=== PATIENT | female | born 1970 | race Caucasian/White ===

== ENCOUNTER 2023-02-04 11:00 | Day surgery (SDC) | payer OTHER ==
[~2023-02-04 11:00] MED LIST: Sodium Chloride 0.9% 10 ML Syringe FLUSH PRN
[2023-02-04] MEDS: Sodium Chloride 0.9% 1,000 ML IV SCH (11:15)
[2023-02-04] MEDS ORDERED: Midazolam 1 MG/ML 2 ML SDV ONE (11:35)
[2023-02-04] MEDS ORDERED: Propofol 200 MG/20 ML SDV ONE (11:35)
== END 2023-02-04 14:00 | disposition home or self-care (01) ==
LOC: KA.SDS 11:00
PROVIDERS: ATTEND Surgery
DX: Z12.11 Encounter for screening for malignant neoplasm of colon (principal); D12.2 Benign neoplasm of ascending colon; E66.01 Morbid (severe) obesity due to excess calories; E11.9 Type 2 diabetes mellitus without complications; F33.42 Major depressive disorder, recurrent, in full remission; G47.33 Obstructive sleep apnea (adult) (pediatric); E03.9 Hypothyroidism, unspecified; E78.1 Pure hyperglyceridemia; Z79.899 Other long term (current) drug therapy; Z79.890 Hormone replacement therapy; Z98.890 Other specified postprocedural states; Z87.891 Personal history of nicotine dependence; Z68.41 Body mass index [BMI] 40.0-44.9, adult; Z88.2 Allergy status to sulfonamides; Z88.8 Allergy status to other drugs, medicaments and biological substances
CPT/HCPCS: 82947; J2250; J2704; J7030